=== PATIENT | female | born 1955 | race Caucasian/White ===

== ENCOUNTER 2018-02-15 09:21 | Outpatient (CLI) ==
[2013-07-04 11:28] VITALS: BMI 23.6
--- NOTE | 2018-02-15 10:04 | DI ---
EXAM: Two views of the chest. History: Cough. Findings: Heart size is normal. No focal consolidation. No appreciable pleural fluid and no pneumo thorax. No acute osseous abnormalities. Impression: No acute cardiopulmonary process
== END 2018-02-15 09:22 | disposition home or self-care (01) ==
LOC: RAD 09:21
PROVIDERS: ATTEND Family Medicine
DX: R05 Cough (principal)